=== PATIENT | female | born 1945 | race Caucasian/White ===

== ENCOUNTER 2020-09-26 13:03 | Inpatient (IN) | payer MEDICARE ==
[2020-09-26 13:40] LABS: #Eosinphils 0.1 thou/uL (0.0-0.7); #Lymphocytes 1.6 thou/uL (1.20-3.40); #Monocytes 0.6 thou/uL (0.11-0.59); #Neutrophils 5.8 thou/uL (1.40-6.50); %Basophils 0.2 % (0.0-1.0); %Eosinophils 0.7 % (0.0-10.0); %Lymphocytes 19.4 % (21.0-51.0); %Monocytes 7.2 % (0.0-10.0); %Neutrophils 72.5 % (42.0-75.0); Hemoglobin 14.3 g/dL (12.0-16.0); Mean Corpuscular HGB CONC 34.2 g/dL (32.0-36.0); Mean Corpuscular Hemoglobin 33.8 pg (27.0-31.0); Mean Corpuscular Volume 98.7 fL (78.0-98.0); Mean Platelet Volume 9.6 fL (7.4-10.4); Platelet Count 157 thou/uL (130-400); RBC Distribution Width 11.4 % (11.5-14.5); Red Blood Cell (RBC) Count 4.23 mill/uL (4.20-5.40)
[2020-09-26 13:58] LABS: ALT (SGPT) 23 U/L (8-55); AST (SGOT) 25 U/L (5-34); Albumin 4.4 g/dL (3.4-4.8); Alkaline Phosphatase 66 U/L (40-110); Anion Gap 18 mmol/L (10-20); BUN (Urea Nitrogen) 34 mg/dL (9.8-20.1); Bilirubin, Total 0.5 mg/dL (0.2-1.2); Calc. Creatinine Clearance 0 mL/min (70-130); Calcium 10.2 mg/dL (7.8-10.44); Carbon Dioxide 22 mmol/L (23-31); Chloride 104 mmol/L (98-107); Globulin 2.7 g/dL (2.4-3.5); Glucose 112 mg/dL (83-110); Potassium 3.9 mmol/L (3.5-5.1); Protein, Total 7.1 g/dL (5.8-8.1); Sodium 140 mmol/L (136-145)
[2020-09-26 14:53] LABS: Bacteria/HPF None Seen HPF (None Seen); Bilirubin Negative (Negative); Blood, Urine Negative (Negative); Clarity Clear (Clear); Glucose, Urine (Dipstick) Normal (Negative); Ketone, Urine Negative (Negative); Leukocyte 25 Leu/uL (Negative); Nitrite Negative (Negative); Protein, Urine (Dipstick) Negative (Neg-Trace); RBC/HPF None Seen HPF (0-3); Specific Gravity, Urine 1.005 (1.002-1.036); Squamous Epithelial None Seen HPF (0-3); Urobilinogen Normal mg/dL (Less than 2); WBC/HPF 0-3 HPF (0-3); pH, Urine 5.5 (5.0-9.0)
[2020-09-26] MEDS ORDERED: Senokot S 8.6-50 MG TAB PO PRN (16:50)
[2020-09-26] MEDS ORDERED: Acetaminophen 325 MG TAB PO PRN (16:50)
[2020-09-26] MEDS ORDERED: HYDROcodone/Acetaminophen 5/325 mg Tablet PO PRN (16:50)
[2020-09-26] MEDS ORDERED: Ondansetron PF 4 MG/2 ML Vial IVP PRN (16:50)
[2020-09-26 17:42] LABS: Troponin I 0.035 ng/mL (< 0.028)
[2020-09-26 21:03] VITALS: BMI 25.0
[2020-09-27 05:37] LABS: SARS-CoV-2 PCR by NAA Not Detected (NotDetected)
[2020-09-27 05:47] LABS: Anion Gap 13 mmol/L (10-20); BUN (Urea Nitrogen) 26 mg/dL (9.8-20.1); Calc. Creatinine Clearance 53 mL/min (70-130); Calcium 9.1 mg/dL (7.8-10.44); Carbon Dioxide 23 mmol/L (23-31); Chloride 109 mmol/L (98-107); Glucose 89 mg/dL (83-110); Magnesium 1.8 mg/dL (1.6-2.6); Potassium 3.6 mmol/L (3.5-5.1); Sodium 141 mmol/L (136-145)
[2020-09-27 08:09] LABS: Eosinophils 3 % (0-10); Hemoglobin 12.5 g/dL (12.0-16.0); Lymphocytes 35 % (21-51); MDiff Complete? YES; Mean Corpuscular HGB CONC 33.5 g/dL (32.0-36.0); Mean Corpuscular Hemoglobin 33.5 pg (27.0-31.0); Mean Platelet Volume 9.4 fL (7.4-10.4); Monocytes 11 % (0-10); Neutrophil 50 % (42-75); Platelet Count 133 thou/uL (130-400); RBC Distribution Width 11.5 % (11.5-14.5); Red Blood Cell (RBC) Count 3.72 mill/uL (4.20-5.40); White Blood Cell (WBC) Count 5.3 thou/uL (4.8-10.8)
[2020-09-27] MEDS: Aspirin Chewable 81 MG TAB PO SCH (09:32)
[2020-09-27] MEDS: Clopidogrel Bisulfate 75 MG TAB PO SCH (09:32)
[2020-09-27] MEDS: Furosemide 20 MG TAB PO SCH (09:32)
[2020-09-27] MEDS: Enoxaparin Sodium 40 MG/0.4 ML SYRINGE SC SCH (09:33)
[2020-09-27] MEDS: Calcium Carbonate 600 MG + Vit D TAB PO SCH (20:38)
[2020-09-27] MEDS ORDERED: Ezetimibe 10 MG TAB PO SCH (21:00)
[2020-09-27] MEDS ORDERED: FISH OIL PO SCH (21:00)
[2020-09-27] MEDS ORDERED: DHA PO SCH (21:00)
[2020-09-27] MEDS ORDERED: EPA PO SCH (21:00)
[2020-09-27] MEDS ORDERED: OMEGA PO SCH (21:00)
[2020-09-27] MEDS ORDERED: [UNRECOGNIZED DRUG - OTHER] PO SCH (21:00)
[2020-09-27] MEDS ORDERED: CALCIUM CARBONATE PO SCH (21:00)
[2020-09-27] MEDS ORDERED: [UNRECOGNIZED DRUG - OTHER] PO SCH (21:00)
[2020-09-27] MEDS ORDERED: VITAMIN D3 PO SCH (21:00)
[2020-09-27] MEDS: Fish Oil 1,000 MG CAP PO SCH (22:21)
[2020-09-28] MEDS ORDERED: Regadenoson 0.4 MG/5 ML SYRINGE ONE (08:55)
[2020-09-28] MEDS: Furosemide 20 MG TAB PO SCH (14:14)
[2020-09-28] MEDS: Aspirin Chewable 81 MG TAB PO SCH (14:15)
[2020-09-28] MEDS: Enoxaparin Sodium 40 MG/0.4 ML SYRINGE SC SCH (14:15)
[2020-09-28] MEDS: Clopidogrel Bisulfate 75 MG TAB PO SCH (14:15)
[2020-09-28] MEDS ORDERED: Pravastatin Sodium 20 MG TAB PO SCH ×2 (21:00)
[2020-09-28] MEDS ORDERED: PRAVASTATIN SODIUM 40 MG PO SCH (21:00)
[2020-09-28] MEDS: Calcium Carbonate 600 MG + Vit D TAB PO SCH (21:27)
[2020-09-28] MEDS: Fish Oil 1,000 MG CAP PO SCH (21:27)
[2020-09-29] MEDS: Enoxaparin Sodium 40 MG/0.4 ML SYRINGE SC SCH (08:34)
[2020-09-29] MEDS: Clopidogrel Bisulfate 75 MG TAB PO SCH (08:37)
[2020-09-29] MEDS: Furosemide 20 MG TAB PO SCH ×2 (08:39→08:45)
[2020-09-29] MEDS: Aspirin Chewable 81 MG TAB PO SCH (08:47)
[2020-09-29] MEDS ORDERED: Ezetimibe 10 MG TAB PO SCH (09:00)
[2020-09-29 12:00] VITALS: BP 117/59; TEMP 97.8
== END 2020-09-29 12:35 | disposition home or self-care (01) | DRG 312 ==
LOC: ERS 13:03 → 2SW 16:39 → OBSVTOIN 09-28 16:47
PROVIDERS: ADMIT Family Medicine; ATTEND Hospitalist
DX: R55 Syncope and collapse (principal); I13.0 Hypertensive heart and chronic kidney disease with heart failure and stage 1 through stage 4 chronic kidney disease, or unspecified chronic kidney disease; I50.32 Chronic diastolic (congestive) heart failure; R00.2 Palpitations; Z20.822 Contact with and (suspected) exposure to COVID-19; E78.5 Hyperlipidemia, unspecified; I25.10 Atherosclerotic heart disease of native coronary artery without angina pectoris; N18.9 Chronic kidney disease, unspecified; R77.8 Other specified abnormalities of plasma proteins; Z95.1 Presence of aortocoronary bypass graft; Z98.51 Tubal ligation status; Z90.49 Acquired absence of other specified parts of digestive tract; I25.2 Old myocardial infarction; Z88.2 Allergy status to sulfonamides; Z88.8 Allergy status to other drugs, medicaments and biological substances
CPT/HCPCS: 36415; 70450; 71045; 78452; 80048; 80053; 81003; 81015; 83735; 83880; 84443; 84484; 85007; 85025; 85027; 87635; 93005; 93017; 93306; 94760; 95816; 95819; 95957; 96372; A9500; G0378; J1650; J2785; U0003; U0005